=== PATIENT | female | born 1995 | race Caucasian/White ===

== ENCOUNTER 2017-12-18 14:50 | Emergency (ER) | payer SELFPAY ==
[~2017-12-18] VITALS: Ht 165.1 cm; Wt 64.2 kg
[2017-12-18 15:30] LABS: APPEARANCE CLOUDY ((CLEAR)); BILIRUBIN NEGATIVE; BLOOD MODERATE; COLOR YELLOW ((YELLOW)); GLUCOSE (STRIP) NEGATIVE; KETONES NEGATIVE; LEUKOCYTES LARGE; NITRITE NEGATIVE; PROTEIN (STRIP) 100; SPECIFIC GRAVITY 1.008 (1.000-1.030); UROBILINOGEN 0.2 MG/DL (0.2-1.0)
[2017-12-18 15:51] LABS: HEMATOCRIT 38.6 % (36.0-46.0); HEMOGLOBIN 13.3 G/DL (11.9-15.5); MCH 29.4 PG (29.0-34.0); MCHC 34.5 G/DL (30.0-36.0); MCV 85.4 FL (83-99); PLATELET COUNT 216 K/uL (156-360); RBC DIS.WIDTH-SD 40.7 % (39-53); RED BLOOD COUNT 4.52 M/uL (3.80-5.20)
[2017-12-18 16:04] LABS: BACTERIA RARE /HPF; EPITHELIAL CELLS 1+ /HPF; RED BLOOD CELLS 0-5 /HPF (0-5); UCUL ADDED? YES; WHITE BLOOD CELLS 30-40 /HPF (0-5)
[2017-12-18 16:05] LABS: MUCUS TRACE /LPF
[2017-12-18 16:06] LABS: CHLORIDE 106 mEq/L (99-109); POTASSIUM 4.1 mEq/L (3.7-5.4); SODIUM 138 mEq/L (136-147)
[2017-12-18 16:07] LABS: GLUCOSE 87 mg/dL (70-99)
[2017-12-18 16:11] LABS: CREATININE 0.8 mg/dL (0.6-1.3)
[2017-12-18 16:12] LABS: UREA NITROGEN (BUN) 16 mg/dL (9-23)
[2017-12-18 16:20] LABS: QUANTITATIVE HCG < 4.0 MIU/ML
[2017-12-18 16:39] LABS: GFR ESTIMATE (CALCULATED) > 59 mL/min/
[2017-12-18] MEDS ORDERED: MOTRIN600 MG PO (19:05)
[2017-12-18] MEDS ORDERED: CIPRO500 MG PO (19:05)
[2017-12-18] MEDS ORDERED: TRAMADOL HCL50 MG PO (19:05)
[2017-12-18 19:24] VITALS: BP 128/91
== END 2017-12-18 19:24 | disposition home or self-care (01) ==
LOC: EME 14:50
DX: N12 Tubulo-interstitial nephritis, not specified as acute or chronic (principal)
CPT/HCPCS: 74176; 80048; 81003; 84702; 85027; 87077; 87086; 87186; 99281; 99284; J1885